=== PATIENT | male | born 1950 | race Two or more races ===

== ENCOUNTER 2016-11-02 17:31 | Emergency (ER) | payer SELFPAY ==
[~2016-11-02] VITALS: Ht 162.6 cm; Wt 81.2 kg
--- NOTE | 2016-11-02 17:35 | NUR ---
PATIENT BIB RA C/O WEAKNESS AND NONVERBAL SINCE 1600. PATIENT IS BREATHING EVEN AND UNLABORED. NO SOB. PATIENT IS APHASIC, UNABLE TO OBTAIN MENTAL STATUS. SAFETY AND COMFORT MEASURES IN PLACE. AWAITING MD ORDERS.
--- NOTE | 2016-11-02 17:40 | NUR ---
NEW IV STARTED ON RAC, 18 G AND LAC, 20 G. CODE STROKE INITIATED.
--- NOTE | 2016-11-02 17:43 | NUR ---
INITIATED CALL TO [facility]
--- NOTE | 2016-11-02 17:49 | NUR ---
DR MAY FROM TELESTROKE CALLED BACK, TRANSFERRED CALL TO DR ANGULO
[2016-11-02 17:51] LABS: BASOPHILS # (AUTO) 0.1 /CMM (0.0-0.2); BASOPHILS % (AUTO) 0.8 % (0.0-2.0); EOSINOPHILS # (AUTO) 0.7 /CMM (0.0-0.7); EOSINOPHILS % (AUTO) 7.5 % (0.0-6.0); HEMATOCRIT 39 % (39-51); HEMOGLOBIN 13.2 g/dL (13.5-17.5); LYMPHOCYTES % (AUTO) 21.4 % (20.0-44.0); MEAN CORPUSCULAR HEMOGLOBIN 28 PG (26.0-33.0); MEAN CORPUSCULAR HGB CONC 34 g/dl (31.0-36.0); MEAN CORPUSCULAR VOLUME 83 fL (80-96); MONOCYTES # (AUTO) 0.7 /CMM (0.1-1.30); MONOCYTES % (AUTO) 7.6 % (2.0-12.0); NEUTROPHILS # (AUTO) 5.6 /CMM (1.8-8.9); NEUTROPHILS % (AUTO) 62.7 % (43.0-81.0); PLATELET COUNT (AUTO) 290 /CMM (150-450); RDW COEFFICIENT OF VARIATION 13.2 (11.5-15.0); RED BLOOD CELL COUNT(AUTO) 4.69 MIL/uL (4.5-6.0); WHITE BLOOD COUNT (AUTO) 9.1 K/uL (4.3-11.0)
[2016-11-02 18:01] LABS: CALCIUM, SERUM 8.2 mg/dL (8.5-10.1); CREATININE 1.7 mg/dL (0.6-1.3); POTASSIUM 4.5 mmol/L (3.5-5.1)
[2016-11-02 18:03] LABS: INR 0.96 (0.87-1.13)
[2016-11-02 18:09] LABS: TROPONIN I 0.031 ng/mL (0.00-0.056)
[2016-11-02 18:15] VITALS: BP 147/74
--- NOTE | 2016-11-02 18:31 | NUR ---
TPA BOLUS ADMINISTERED. FAMILY CONSENT TO TPA. MD ORDER IN PLACE. WILL CONTINUE TO MONITOR.
--- NOTE | 2016-11-02 18:32 | NUR ---
TPA BOLUS COMPLETED, TPA INFUSION STARTED. WILL MONITOR PATIENT'S NEURO STATUS.
--- NOTE | 2016-11-02 18:38 | NUR ---
CALLED RADIOLOGY DEPARTMENT FOR STAT CTA. LILIAN SAFETY AIDE STATES "I AM BUSY RIGHT NOW" AND HANG UP PHONE.
--- NOTE | 2016-11-02 18:40 | NUR ---
CODE STROKE REACTIVATED.
--- NOTE | 2016-11-02 19:32 | NUR ---
TPA INFUSION COMPLETED, [facility] RECALCULATED. PATIENT SHOWS IMPROVEMENT, NO LONGER APHASIC. VITALS REMAIN STABLE.
--- NOTE | 2016-11-02 19:58 | NUR ---
REPORT GIVEN TO BECKY SYED AT BEDSIDE, PATIENTS VITALS REMAIN STABLE. NEURO CHECKS COMPLETED. TRANSFER TO [facility] FOR HIGH LEVEL OF CARE. PATIENT TRANSFERRED VIA [facility].
--- NOTE | 2016-11-02 20:09 | NUR ---
REPORT GIVEN TO SARAH PENA AT [facility] AT [phone]. PATIENT TRANSFERRED TO [facility] VIA [facility]OTOCOL
== END 2016-11-02 20:10 | disposition short-term general hospital (02) ==
LOC: ER 17:33
DX: I63.9 Cerebral infarction, unspecified (principal); N17.9 Acute kidney failure, unspecified; R51 Headache; I25.2 Old myocardial infarction; I10 Essential (primary) hypertension; F32.9 Major depressive disorder, single episode, unspecified; E11.9 Type 2 diabetes mellitus without complications; D64.9 Anemia, unspecified; R62.7 Adult failure to thrive; Z86.73 Personal history of transient ischemic attack (TIA), and cerebral infarction without residual deficits; Z95.1 Presence of aortocoronary bypass graft
CPT/HCPCS: 36415; 70450-TC; 70496-TC; 70498-TC; 71010-TC; 80048-TC; 82962-TC; 84484-TC; 85025-TC; 85730-TC; A4606; J2997; J7050; Q9967; Z7610